=== PATIENT | male | born 1940 | race Caucasian/White ===

== ENCOUNTER 2017-03-26 11:04 | Observation (INO) | payer OTHER, MEDICARE ==
[~2017-03-26] VITALS: Ht 185.4 cm; Wt 93.4 kg
[~2017-03-26 11:04] MED LIST: AMLODIPINE BESY10 MG PO; AUGMENTIN875 MG PO; CARVEDILOL25 MG PO; INCRUSE ELLI62.5 MCG IH; PRAVACHOL80 MG PO; VALSARTAN320 MG PO
[2017-03-26 12:38] LABS: HEMATOCRIT 42.8 % (38.0-50.0); MCH 31.2 PG (29.0-34.0); MCHC 33.6 G/DL (30.0-36.0); MCV 92.6 FL (86-99); PLATELET COUNT 154 K/uL (156-360); RBC DIS.WIDTH-CV 12.5 % (11.8-14.6); RBC DIS.WIDTH-SD 42.5 % (39-53); RED BLOOD COUNT 4.62 M/uL (4.00-5.50); WHITE BLOOD COUNT 5.8 K/uL (4.1-10.2)
[2017-03-26 12:47] LABS: CHLORIDE 104 mEq/L (99-109); POTASSIUM 4.5 mEq/L (3.7-5.4); SODIUM 138 mEq/L (136-147)
[2017-03-26 12:49] LABS: GLUCOSE 88 mg/dL (70-99)
[2017-03-26 12:50] LABS: ANION GAP 9 MEQ/L (2-14)
[2017-03-26 12:53] LABS: GFR ESTIMATE (CALCULATED) 39 mL/min/
[2017-03-26 12:54] LABS: UREA NITROGEN (BUN) 18 mg/dL (9-23)
[2017-03-26 12:59] LABS: TROP-I INTERPRETATION NEGATIVE; TROPONIN-I < 0.01 ng/mL (0.0-0.30)
[2017-03-26] MEDS ORDERED: DIOVAN160 MG PO (14:01)
[2017-03-26] MEDS ORDERED: NORVASC5 MG PO (14:02)
[2017-03-26] MEDS ORDERED: COREG3.125 M1 PO (14:02)
[2017-03-26] MEDS ORDERED: GLUCOSAMINE CH1 EAC2 PO (14:03)
[2017-03-26 15:42] VITALS: BP 143/71
== END 2017-03-26 15:15 | disposition left against medical advice (07) ==
LOC: EME 11:04 → EDOF 13:29
PROVIDERS: Emergency Medicine
DX: E86.0 Dehydration (principal); R55 Syncope and collapse; Z87.891 Personal history of nicotine dependence; J43.9 Emphysema, unspecified; I12.9 Hypertensive chronic kidney disease with stage 1 through stage 4 chronic kidney disease, or unspecified chronic kidney disease; N18.3 Chronic kidney disease, stage 3 (moderate)
CPT/HCPCS: 70450; 71020; 80048; 84484; 85027; 93005; 99281; 99285; G0378; J7030